=== PATIENT | male | born 1995 | race Caucasian/White ===

== ENCOUNTER 2016-12-07 10:54 | Day surgery (SDC) | payer OTHER ==
[2016-12-06 08:45] VITALS: BMI 24.3
[2016-12-07] MEDS ORDERED: Neomycin-Polymyxin 1 ML AMP ONE (12:08)
[2016-12-07] MEDS ORDERED: Midazolam HCl 2 mg/2 ml Vial ONE (12:28)
[2016-12-07] MEDS ORDERED: Fentanyl 100 MCG/2 ML VIAL ONE ×4 (12:28→15:43)
[2016-12-07] MEDS ORDERED: Ondansetron HCl/PF 4 MG/2 ML Vial ONE (13:09)
[2016-12-07] MEDS ORDERED: Lidocaine 2% PF 10 ML AMP (For Epidural Use) ONE (13:09)
[2016-12-07] MEDS ORDERED: Propofol 200 MG/20 ML VIAL ONE ×2 (13:09)
[2016-12-07] MEDS ORDERED: Dexamethasone 20 MG/5 ML VIAL ONE (13:09)
[2016-12-07] MEDS ORDERED: Ropivacaine 0.2% 550 ML 550 ML NERVE BLCK SCH (13:17)
[2016-12-07] MEDS ORDERED: traMADol HCl 50 MG TAB PO PRN ×2 (13:17)
[2016-12-07] MEDS ORDERED: Promethazine HCl 25 MG/ML VIAL IM PRN (13:17)
[2016-12-07] MEDS ORDERED: HYDROcodone/Acetaminophen 5/325 mg Tablet PO PRN ×2 (13:17)
[2016-12-07] MEDS ORDERED: Ondansetron HCl/PF 4 MG/2 ML Vial IVP PRN (13:17)
[2016-12-07] MEDS ORDERED: Zolpidem Tartrate 5 MG TAB PO PRN (13:17)
[2016-12-07] MEDS ORDERED: Fentanyl 100 MCG/2 ML VIAL IV PRN (13:18)
[2016-12-07] MEDS ORDERED: Diprivan 20 ML ONE (14:35)
--- NOTE | 2016-12-07 17:09 | RAD ---
TWO VIEWS RIGHT ANKLE: 12/07/16 Two intraoperative images obtained. HISTORY: Right ankle fracture. Two intraoperative images demonstrate open reduction and internal fixation of distal right fibular f racture. Plates and screws are in good position. IMPRESSION: Open reduction internal fixation distal left fibular fracture. POS: [facility]
[2016-12-07] MEDS ORDERED: HYDROcodone/Acetaminophen 5/325 mg Tablet ONE (18:19)
--- NOTE | 2016-12-07 18:27 | OP ---
DATE OF PROCEDURE: 12/07/2016 PREOPERATIVE DIAGNOSIS: Right distal fibular fracture with deltoid ligament disruption. POSTOPERATIVE DIAGNOSIS: Right distal fibular fracture with deltoid ligament disruption. PROCEDURE: 1. Open reduction internal fixation of right distal fibula fracture. 2. Repair of medial collateral ligament deltoid, right ankle. 3. Fluoroscopic guidance internal fixation. ANESTHESIA: General. SURGEON: Darren Hartman M.D. COMPLICATIONS: None. CONDITION: Good. ESTIMATED BLOOD LOSS: Minimal. DRAINS: None. TOURNIQUET: Per anesthesia. TECHNIQUE: Consent was obtained. The patient was taken to the operating room by operating room and placed in supine position. After adequate general anesthesia had been achieved, the patient's righ t foot and ankle was examined. The patient had diffuse swelling and ecchymosis. Skin was otherwise intact. There was gross instability with rotational and translation of the tibiotalar articulation . The right lower extremity was then positioned, prepped and draped in usual fashion and tourniquet placed in the right upper thigh. Leg was elevated, exsanguinated, and tourniquet inflated prior to incision. Standard direct lateral approach to the fibula fracture was performed. It was taken pastora n to the subcutaneous tissues exposing the mildly comminuted oblique distal third fibular shaft frac ture. The hematoma was evacuated and the bone reduced anatomically. A compression screw was placed anterior and posterior with good stability. The 1/3 tubular neutralization plate was then placed a nd good anatomic reduction was noted. The syndesmosis appeared to be stable. After reduction, this was checked with image intensifier. There is still increased instability medially. This was check ed fluoroscopically and was felt that deltoid repair would enhance stability. A second oblique inci gay was made over the medial malleolus, taken down to subcutaneous tissues. There was complete dis ruption of the deltoid from the medial malleolus. The joint was irrigated of hematoma and inspected . There was no significant articular abnormalities. The single anchor was placed in the distal med ial malleolus and this was used to reattach part of the superficial deltoid. Additional suture was #1 Vicryl was used to complete the repair. Good stable fixation. This was checked. Image intensif ier showed anatomic reduction and stability. It was irrigated copiously. The subcutaneous closed w ith 2-0 Vicryl, and the skin with 3-0 nylon. Sterile bulky dressing with posterior stirrup splint w as applied and the patient was taken to recovery. The prognosis is good. Continue nonweightbearing .
== END 2016-12-07 19:00 ==
LOC: SDC 10:54
PROVIDERS: ATTEND Orthopaedic Surgery
PROC: 0QSJ04Z Reposition Right Fibula with Internal Fixation Device, Open Approach (ICD-10-PCS; principal; 2016-12-07)
PROC: 0MQQ0ZZ Repair Right Ankle Bursa and Ligament, Open Approach (ICD-10-PCS; principal; 2016-12-07)
DX: S82.891A Other fracture of right lower leg, initial encounter for closed fracture (principal); S93.421A Sprain of deltoid ligament of right ankle, initial encounter; Z79.899 Other long term (current) drug therapy; Z88.6 Allergy status to analgesic agent
CPT/HCPCS: 76001; 96374; A4306; C1713; J1100; J1170; J2001; J2250; J2405; J2704; J2795; J3010